=== PATIENT | female | born 1965 | race Caucasian/White ===

== ENCOUNTER 2018-01-22 08:28 | Observation (INO) | payer OTHER ==
[~2018-01-22] VITALS: Ht 167.6 cm; Wt 107.2 kg
[2018-01-22 09:43] LABS: BASO % 1 % (0-3); EOS % 1 % (0-3); HEMATOCRIT 38.4 % (36.0-47.0); HEMOGLOBIN 13.1 g/dL (12.0-15.5); LYMPH % 45 % (24-48); MEAN CORPUSCULAR HEMOGLOBIN 31 pg (25-35); MEAN CORPUSCULAR HGB CONC 34 g/dL (31-37); MEAN CORPUSCULAR VOLUME 92 fL (79-100); MONO # 0.4 x10^3/uL (0.0-1.1); MONO % 6 % (0-9); NEUT # 3.2 x10^3uL (1.8-7.7); NEUT % 48 % (31-73); PLATELET COUNT 195 x10^3/uL (140-400); RED CELL DISTRIBUTION WIDTH 13.6 % (11.5-14.5); WHITE BLOOD COUNT 6.6 x10^3/uL (4.0-11.0)
[2018-01-22 10:09] VITALS: BP 133/76
[2018-01-22 10:34] LABS: ALBUMIN 3.9 g/dL (3.4-5.0); CALCIUM 9.7 mg/dL (8.5-10.1); CREATININE 0.7 mg/dL (0.6-1.0); GFR 87.2; POTASSIUM 4.1 mmol/L (3.5-5.1); TOTAL BILIRUBIN 0.3 mg/dL (0.2-1.0); TOTAL PROTEIN 7.7 g/dL (6.4-8.2)
[2018-01-22] MEDS ORDERED: LISI-334 PO (10:47)
[2018-01-22] MEDS ORDERED: ERGO500027 PO (10:47)
[2018-01-22] MEDS ORDERED: PRED1DRO OD (10:47)
[2018-01-22] MEDS ORDERED: VALA500T PO (10:47)
[2018-01-22] MEDS ORDERED: MONT10TA6 PO (10:47)
[2018-01-22] MEDS ORDERED: MELO15TA23 PO (10:47)
[2018-01-22] MEDS ORDERED: FISH12002 PO (10:47)
[2018-01-22] MEDS ORDERED: CETI10TA22 PO (10:47)
[2018-01-22] MEDS ORDERED: UBID100C26 PO (10:47)
[2018-01-22] MEDS ORDERED: ASPI-630 PO (10:47)
[2018-01-22] MEDS ORDERED: CRESTOR10 MG PO (10:47)
[2018-01-22 10:50] LABS: BILIRUBIN,URINE NEG (NEG); CLARITY,URINE CLEAR; COLOR,URINE YELLOW; GLUCOSE,URINE NEG (NEG); NITRITE,URINE NEG (NEG); RBC,URINE RARE /HPF (0-2); UROBILINOGEN,URINE 0.2 mg/dL (0.2 mg/dL); WBC,URINE RARE /HPF (0-4)
[2018-01-22 10:51] LABS: BACTERIA,URINE FEW /HPF (0-FEW); SQUAMOUS EPITHELIAL CELL,UR FEW /LPF
[2018-01-22 11:11] VITALS: BP 126/73
--- NOTE | 2018-01-22 11:40 | EKG ---
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
--- NOTE | 2018-01-22 12:51 | RAD ---
Chest, 2 views, 01/22/2018: History: Shortness of breath, heart fluttering Comparison is made to a study from 10/11/2010. The heart size and pulmonary vascularity are normal. No pulmonary infiltrate is seen. There is no evidence of pleural fluid. A surgical plate and screws is evident in the lower cervical spine. IMPRESSION: No acute cardiopulmonary abnormality is detected.
--- NOTE | 2018-01-22 14:13 | PDOC2 ---
CONSULT Date of Admission DATE: 01/22/18 TIME: 14:13 Reason for Consult: Chest pain and palpitations Chief Complaint Chest pain Source: Patient History of Present Illness 52-year-old female presented complaining of intermittent episodes of retrosternal chest pressure associated with palpitations not related to exertion or food intake. She stated that she was worked up by cardiology 2-3 years ago for palpitations when everything came back normal. She denied any orthopnea/PND or syncope. Past Medical History Hypertension Hyperlipidemia Family History Negative for premature coronary artery disease Social History Patient is a nonsmoker and nondrinker Current Medications Current Medications Aspirin (Children'S Aspirin) 81 mg DAILY PO ; Start 01/23/18 at 09:00 Cetirizine HCl (ZyrTEC) 10 mg DAILY PO ; Start 01/23/18 at 09:00 Lisinopril (Prinivil) 20 mg DAILY PO ; Start 01/23/18 at 09:00 Meloxicam (Mobic) 15 mg DAILY PO ; Start 01/23/18 at 09:00 Montelukast Sodium (Singulair) 10 mg DAILY PO ; Start 01/23/18 at 09:00 Prednisolone Acetate (Pred Forte) 1 drop DAILY OD ; Start 01/23/18 at 09:00 Valacyclovir HCl (Valtrex) 500 mg DAILY PO ; Start 01/23/18 at 09:00 Vitamin D (Vitamin D3) 50,000 unit WEEKLY PO ; Start 01/29/18 at 09:00 Fish Oil (Fish Oil) 1,000 mg DAILY PO ; Start 01/23/18 at 09:00 Atorvastatin Calcium (Lipitor) 40 mg DAILY PO ; Start 01/23/18 at 09:00 Coenzyme Q10 (Coenzyme Q10) 100 mg DAILY PO ; Start 01/23/18 at 09:00 Active Scripts Active Reported Vitamin D2 (Ergocalciferol (Vitamin D2)) 50,000 Unit Capsule 1 Cap PO WEEKLY Meloxicam 15 Mg Tablet 1 Tab PO DAILY Lisinopril 20 Mg Tablet 1 Tab PO DAILY Crestor (Rosuvastatin Calcium) 10 Mg Tablet 1 Tab PO DAILY Zyrtec (Cetirizine Hcl) 10 Mg Tablet 1 Tab PO DAILY Singulair Tablet (Montelukast Sodium) 10 Mg Tablet 1 Tab PO DAILY Coq-10 (Ubidecarenone) 100 Mg Capsule 100 Mg PO DAILY Martin 3-6-9 1,200 mg Softgel (Fish Oil/Borage/Flax/Om3,6,9#1) 1,200 Mg Capsule 1 ,200 Mg PO DAILY Aspirin 81 Mg Tab.chew 81 Mg PO DAILY Pred Forte (Prednisolone Acetate) 1 Ml Drops.susp 1 Drop OD DAILY Valacyclovir (Valacyclovir Hcl) 500 Mg Tablet 1 Tab PO DAILY Allergies: Coded Allergies: Iodinated Contrast- Oral and IV Dye (Verified Allergy, Severe, 01/22/18) PSYCHOLOGICAL ROS: No: Hallucinations Eyes: No: Loss of vision HEENT: No: Epistaxis ENDOCRINE: YES: Palpitations Respiratory: No: Hemoptysis Cardiovascular: yes: Chest Pain Gastrointestinal: No: Vomiting Genitourinary: No: [place] Neurological: No: Seizures Skin: No: Rash General: Alert, Oriented X3 HEENT: Atraumatic, PERRLA Lungs: Clear to auscultation Heart: Regular rate Abdomen: Soft Extremities: No edema Neuro: Normal tone Psych/Mental Status: Mood NL VITALS Vital Signs Date Time Temp Pulse Resp B/P (MAP) Pulse Ox O2 Delivery O2 Flow Rate FiO2 01/22/18 11:11 98.0 87 13 126/73 (90) 99 Room Air Labs Laboratory Tests Test 01/22/18 09:31 01/22/18 10:00 White Blood Count 6.6 x10^3/uL (4.0-11.0) Red Blood Count 4.20 x10^6/uL (3.50-5.40) Hemoglobin 13.1 g/dL (12.0-15.5) Hematocrit 38.4 % (36.0-47.0) Mean Corpuscular Volume 92 fL (79-100) Mean Corpuscular Hemoglobin 31 pg (25-35) Mean Corpuscular Hemoglobin Concent 34 g/dL (31-37) Red Cell Distribution Width 13.6 % (11.5-14.5) Platelet Count 195 x10^3/uL (140-400) Neutrophils (%) (Auto) 48 % (31-73) Lymphocytes (%) (Auto) 45 % (24-48) Monocytes (%) (Auto) 6 % (0-9) Eosinophils (%) (Auto) 1 % (0-3) Basophils (%) (Auto) 1 % (0-3) Neutrophils # (Auto) 3.2 x10^3uL (1.8-7.7) Lymphocytes # (Auto) 3.0 x10^3/uL (1.0-4.8) Monocytes # (Auto) 0.4 x10^3/uL (0.0-1.1) Eosinophils # (Auto) 0.0 x10^3/uL (0.0-0.7) Basophils # (Auto) 0.0 x10^3/uL (0.0-0.2) D-Dimer (Stephanie) 0.25 mg/L (0.00-0.50) Urine Collection Type Unknown Urine Color Yellow Urine Clarity Clear Urine pH 7.0 Urine Specific [place] 1.015 Urine Protein Neg (NEG-TRACE) Urine Glucose (UA) Neg mg/dL (NEG) Urine Ketones (Stick) Neg mg/dL (NEG) Urine Blood Neg (NEG) Urine Nitrite Neg (NEG) Urine Bilirubin Neg (NEG) Urine Urobilinogen Dipstick 0.2 mg/dL (0.2 mg/dL) Urine Leukocyte Esterase Neg (NEG) Urine RBC Rare /HPF (0-2) Urine WBC Rare /HPF (0-4) Urine Squamous Epithelial Cells Few /LPF Urine Bacteria Few /HPF (0-FEW) Sodium Level 142 mmol/L (136-145) Potassium Level 4.1 mmol/L (3.5-5.1) Chloride Level 105 mmol/L (98-107) Carbon Dioxide Level 26 mmol/L (21-32) Anion Gap 11 (6-14) Blood Urea Nitrogen 21 mg/dL (7-20) Creatinine 0.7 mg/dL (0.6-1.0) Estimated GFR (Cockcroft-Gault) 87.2 BUN/Creatinine Ratio 30 (6-20) Glucose Level 95 mg/dL (70-99) Calcium Level 9.7 mg/dL (8.5-10.1) Total Bilirubin 0.3 mg/dL (0.2-1.0) Aspartate Amino Transf (AST/SGOT) 29 U/L (15-37) Alanine Aminotransferase (ALT/SGPT) 52 U/L (14-59) Alkaline Phosphatase 72 U/L (46-116) Creatine Kinase 122 U/L (26-192) Creatine Kinase MB (Mass) 0.6 ng/mL (0.0-3.6) Creatine Kinase MB Relative Index 0.5 % (0-4) Troponin I Quantitative < 0.017 ng/mL (0-0.055) YG-Oqq-H-Type Natriuretic Peptide 10 pg/mL (0-124) Total Protein 7.7 g/dL (6.4-8.2) Albumin 3.9 g/dL (3.4-5.0) Albumin/Globulin Ratio 1.0 (1.0-1.7) Assessment/Plan 1. Chest pain with atypical features: Myocardial infarction ruled out. 2-D echo showed normal LV function without any significant wall motion abnormalities. Plan for Lexiscan nuclear stress test as an outpatient. 2. Palpitations: Presently in sinus rhythm and telemetry did not show any significant arrhythmias. Plan for outpatient Holter monitor. 3. Hypertension: Well-controlled 4. Hyperlipidemia: Continue statin therapy Thank you for your consultation Problems: RY LUKE MD Jan 22, 2018 14:13
[2018-01-22 14:41] LABS: THYROID STIM HORMONE (TSH) 1.027 uIU/mL (0.358-3.740)
--- NOTE | 2018-01-22 15:36 | CARD ---
MR#: [id number] Date of Study: 01/22/2018 Ordering Physician: JUAN ALTAMIRANO, Referring Physician: JUAN ALTAMIRANO, Tech: Rubi Huang RONNA APPROVED REPORT EXAM: Two-dimensional and M-mode echocardiogram with Doppler and color Doppler. Other Information Quality : Good INDICATION Chest Pain 2D DIMENSIONS RVDd2.7 (2.9-3.5cm)Left Atrium(2D)3.8 (1.6-4.0cm) IVSd1.2 (0.7-1.1cm)Aortic Root(2D)3.0 (2.0-3.7cm) LVDd4.3 (3.9-5.9cm)LVOT Diameter1.9 (1.8-2.4cm) PWd1.1 (0.7-1.1cm)LVDs2.5 (2.5-4.0cm) FS (%) 30.0 %SV60.6 ml LVEF(%)60.0 (>50%) Aortic Valve AoV Peak Dennis.136.8cm/sAoV VTI24.6cm AO Peak GR.7.5mmHgLVOT Peak Dennis.128.9cm/s LVOT VTI 25.28cmAO Mean GR.5mmHg PATRICIA (VMAX)2.26sy9ODC (VTI)2.87cm2 Mitral Valve MV E Mixolbyn00.8cm/sMV DECEL GWBJ108zy MV A Gtqqefrk37.0cm/sE/A Ratio1.1 Tricuspid Valve TR P. Ykotkdti860er/sRAP LTXSELGV6fnCt TR Peak Gr.81jeEaPLTI64yfNq Pulmonary Vein S1 Rjxizqlg99.2cm/sD2 Ycqkzynl34.7cm/s LEFT VENTRICLE The left ventricle is normal size. There is mild concentric left ventricular hypertrophy. The left ve ntricular systolic function is normal and the ejection fraction is within normal range. The Ejection Fraction is 55-60%. There is normal LV segmental wall motion. Transmitral Doppler flow pattern is Gra de I-abnormal relaxation pattern. RIGHT VENTRICLE The right ventricle is normal size. The right ventricular systolic function is normal. ATRIA The left atrium size is normal. The right atrium size is normal. The interatrial septum is intact wit h no evidence for an atrial septal defect or patent foramen ovale as noted on 2-D or Doppler imaging. AORTIC VALVE The aortic valve is calcified but opens well. Doppler and Color Flow revealed no significant aortic r egurgitation. There is no significant aortic valvular stenosis. MITRAL VALVE The mitral valve is calcified but opens well. There is no evidence of mitral valve prolapse. There is no mitral valve stenosis. Doppler and Color-flow revealed trace mitral regurgitation. TRICUSPID VALVE The tricuspid valve is normal in structure and function. Doppler and Color Flow revealed trace tricus pid regurgitation. The PA pressure was estimated at 24 mmHg. There is no tricuspid valve stenosis. PULMONIC VALVE The pulmonic valve is not well visualized. Doppler and Color Flow revealed trace pulmonic valvular re gurgitation. There is no pulmonic valvular stenosis. GREAT VESSELS The aortic root is normal in size. The ascending aorta is mildly dilated at 3.4 cm. The IVC was not v isualized. PERICARDIAL EFFUSION There is no evidence of significant pericardial effusion. Critical Notification Critical Value: No <Conclusion> The left ventricular systolic function is normal and the ejection fraction is within normal range. Th e Ejection Fraction is 55-60%. There is normal LV segmental wall motion. The ascending aorta is mildly dilated at 3.4 cm. Signed by : Dagoberto Castrejon, Electronically Approved : 01/22/2018 15:35:47
[2018-01-23] MEDS ORDERED: OMEGA-3 FATTY ACIDS/FISH OIL 1,000 MG CAPSULE. PO SCH (09:00)
[2018-01-23] MEDS ORDERED: valACYclovir 500 MG TABLET. PO SCH (09:00)
[2018-01-23] MEDS ORDERED: prednisoLONE ACETATE 1% OPHTH SUSPENSION 5ML BOTTLE. OD SCH (09:00)
[2018-01-23] MEDS ORDERED: CETIRIZINE HCL 10 MG TABLET PO SCH (09:00)
[2018-01-23] MEDS ORDERED: LISINOPRIL 20 MG TABLET PO SCH (09:00)
[2018-01-23] MEDS ORDERED: MELOXICAM 15 MG TABLET. PO SCH (09:00)
[2018-01-23] MEDS ORDERED: MONTELUKAST 10 MG TABLET. PO SCH (09:00)
[2018-01-23] MEDS ORDERED: ASPIRIN 81 MG TAB.CHEW PO SCH (09:00)
[2018-01-23] MEDS ORDERED: UBIDECARENONE 50 MG CAPSULE. PO SCH (09:00)
[2018-01-23] MEDS ORDERED: ATORVASTATIN CALCIUM 20 MG TABLET PO SCH (09:00)
[2018-01-29] MEDS ORDERED: CHOLECALCIFEROL (VITAMIN D3) 50,000 UNIT CAPSULE PO SCH (09:00)
== END 2018-01-22 18:08 | disposition home or self-care (01) ==
LOC: ICU 08:28 → INTOOBSV 08:28
PROVIDERS: ADMIT Family Medicine; ATTEND Family Medicine
DX: R07.89 Other chest pain (principal); R00.2 Palpitations; R06.02 Shortness of breath; I10 Essential (primary) hypertension; E78.5 Hyperlipidemia, unspecified; Z82.49 Family history of ischemic heart disease and other diseases of the circulatory system; Z83.3 Family history of diabetes mellitus; Z82.5 Family history of asthma and other chronic lower respiratory diseases; Z84.89 Family history of other specified conditions
CPT/HCPCS: 36415; 71046; 80053; 80061; 81001; 82553; 83880; 84443; 84484; 85025; 85379; 87641; 93005; 93306; G0378; G0379

== ENCOUNTER → 2018-06-04 | Outpatient (CLI) | payer OTHER ==
[~2018-06-04] MED LIST: ASPI-630 PO; CETI10TA22 PO; CRESTOR10 MG PO; ERGO500027 PO; FISH12002 PO; LISI-334 PO; MELO15TA23 PO; MONT10TA6 PO; PRED1DRO OD; UBID100C26 PO; VALA500T PO
--- NOTE | 2018-06-06 15:59 | RAD ---
DATE: 06/04/2018 EXAM: MAMMO MIRELLA SCREENING BILATERAL HISTORY: Routine screening COMPARISON: 02/19/2014 This study was interpreted with the benefit of Computerized Aided Detection (CAD). The breast parenchyma shows scattered fibroglandular densities. Breast parenchyma level B. FINDINGS: 2-D and 3-D tomosynthesis imaging was performed in CC and MLO projections. No new or enlarging breast densities are seen. No suspicious microcalcifications are evident. IMPRESSION: Stable mammograms without evidence of malignancy. BI-RADS CATEGORY: 1 NEGATIVE RECOMMENDED FOLLOW-UP: 12M 12 MONTH FOLLOW-UP PQRS compliance statement: Patient information was entered into a reminder system with a target due date for the next mammogram. Mammography is a sensitive method for finding small breast cancers, but it does not detect them all and is not a substitute for careful clinical examination. A negative mammogram does not negate a clinically suspicious finding and should not result in delay in biopsying a clinically suspicious abnormality. "Our facility is accredited by the [employer] Mammography Program."
== END | disposition home or self-care (01) ==
LOC: MAMMO 08:29
PROVIDERS: ATTEND Nurse Practitioner Family
DX: Z12.31 Encounter for screening mammogram for malignant neoplasm of breast (principal); I10 Essential (primary) hypertension; E78.5 Hyperlipidemia, unspecified; Z82.49 Family history of ischemic heart disease and other diseases of the circulatory system; Z84.89 Family history of other specified conditions; Z83.3 Family history of diabetes mellitus; Z82.5 Family history of asthma and other chronic lower respiratory diseases
CPT/HCPCS: 77063; 77067

== ENCOUNTER 2018-11-28 18:30 | Emergency (ER) | payer OTHER ==
[~2018-11-28] VITALS: Ht 167.6 cm; Wt 107.0 kg
[~2018-11-28 18:30] MED LIST changes: -MONT10TA6 PO; +MONT10TA80 PO
[2018-11-28 18:42] VITALS: BP 167/106
[2018-11-28] MEDS ORDERED: IV NORMAL SALINE 1,000ML 1,000 ML IV ONE (19:00)
[2018-11-28] MEDS ORDERED: ONDANSETRON PF 4 MG/2 ML VIAL. IV ONE (19:15)
[2018-11-28] MEDS ORDERED: KETOROLAC 30 MG/ML VIAL. IV ONE (19:15)
[2018-11-28] MEDS ORDERED: MORPHINE SULFATE 4 MG/ML DISP.SYRIN. IV ONE (19:15)
[2018-11-28 19:33] LABS: BASO # 0.1 x10^3/uL (0.0-0.2); BASO % 1 % (0-3); EOS % 1 % (0-3); HEMOGLOBIN 13.2 g/dL (12.0-15.5); LYMPH # 3.2 x10^3/uL (1.0-4.8); LYMPH % 47 % (24-48); MEAN CORPUSCULAR HEMOGLOBIN 32 pg (25-35); MEAN CORPUSCULAR HGB CONC 35 g/dL (31-37); MEAN CORPUSCULAR VOLUME 91 fL (79-100); MONO # 0.4 x10^3/uL (0.0-1.1); MONO % 6 % (0-9); NEUT # 3.2 x10^3uL (1.8-7.7); NEUT % 46 % (31-73); PLATELET COUNT 256 x10^3/uL (140-400); RED BLOOD COUNT 4.15 x10^6/uL (3.50-5.40); RED CELL DISTRIBUTION WIDTH 13.4 % (11.5-14.5); WHITE BLOOD COUNT 6.9 x10^3/uL (4.0-11.0)
[2018-11-28 19:38] LABS: BILIRUBIN,URINE NEG (NEG); CLARITY,URINE CLOUDY; COLOR,URINE YELLOW; GLUCOSE,URINE NEG (NEG); UROBILINOGEN,URINE 0.2 mg/dL (0.2 mg/dL)
[2018-11-28 19:39] LABS: BACTERIA,URINE MOD /HPF (0-FEW); NITRITE,URINE NEG (NEG); RBC,URINE 0 /HPF (0-2); SQUAMOUS EPITHELIAL CELL,UR MANY /LPF
--- NOTE | 2018-11-28 19:45 | ED.ADGEN ---
Past History Past Medical History: No Pertinent History Past Surgical History: Cervical Fusion Alcohol Use: None Drug Use: None Adult General Chief Complaint Chief Complaint abd pain HPI HPI 53 years old female presented to the emergency department with flank pain on the right side radiating to the epigastric area and rule out right lower quadrant described as cramps with sharp pain no nausea no vomiting no urinary symptoms fever no chills no urgency no frequency Review of Systems Review of Systems Constitutional: Denies fever or chills [] Eyes: Denies change in visual acuity, redness, or eye pain [] HENT: Denies nasal congestion or sore throat [] Respiratory: Denies cough or shortness of breath [] Cardiovascular: No additional information not addressed in HPI [] GI: Denies abdominal pain, nausea, vomiting, bloody stools or diarrhea [] : Denies dysuria or hematuria [] Musculoskeletal: Denies back pain or joint pain [] Integument: Denies rash or skin lesions [] Neurologic: Denies headache, focal weakness or sensory changes [] Endocrine: Denies polyuria or polydipsia [] All other systems were reviewed and found to be within normal limits, except as documented in this note. Current Medications Current Medications Current Medications Medications (Trade) Dose Ordered Sig/Cesar Start Time Stop Time Status Last Admin Dose Admin Ketorolac Tromethamine (Toradol 30mg Vial) 30 mg 1X ONCE 11/28/18 19:15 11/28/18 19:16 DC Morphine Sulfate (Morphine 4mg Syringe) 4 mg 1X ONCE 11/28/18 19:15 11/28/18 19:16 DC Ondansetron HCl (Zofran) 4 mg 1X ONCE 11/28/18 19:15 11/28/18 19:16 DC Sodium Chloride 1,000 ml @ 1,000 mls/hr 1X ONCE 11/28/18 19:00 11/28/18 19:59 Allergies Allergies Allergies Coded Allergies Type Severity Reaction Last Updated Verified Iodinated Contrast- Oral and IV Dye Allergy Severe 01/22/18 Yes Physical Exam Physical Exam Constitutional: Well developed, well nourished, no acute distress, non-toxic appearance. [] HENT: Normocephalic, atraumatic, bilateral external ears normal, oropharynx moist, no oral exudates, nose normal. [] Eyes: PERRLA, EOMI, conjunctiva normal, no discharge. [] Neck: Normal range of motion, no tenderness, supple, no stridor. [] Cardiovascular:Heart rate regular rhythm, no murmur [] Lungs & Thorax: Bilateral breath sounds clear to auscultation [] Abdomen: Bowel sounds normal, soft, tenderness periumbilical, no masses, no pulsatile masses. [] Skin: Warm, dry, no erythema, no rash. [] Back: No tenderness, no CVA tenderness. [] Extremities: No tenderness, no cyanosis, no clubbing, ROM intact, no edema. [] Neurologic: Alert and oriented X 3, normal motor function, normal sensory function, no focal deficits noted. [] Psychologic: Affect normal, judgement normal, mood normal. [] Current Patient Data Vital Signs Vital Signs Date Time Temp Pulse Resp B/P (MAP) Pulse Ox O2 Delivery O2 Flow Rate FiO2 11/28/18 18:42 92 18 99 Room Air Lab Results Laboratory Tests Test 11/28/18 19:17 White Blood Count 6.9 x10^3/uL (4.0-11.0) Red Blood Count 4.15 x10^6/uL (3.50-5.40) Hemoglobin 13.2 g/dL (12.0-15.5) Hematocrit 38.0 % (36.0-47.0) Mean Corpuscular Volume 91 fL (79-100) Mean Corpuscular Hemoglobin 32 pg (25-35) Mean Corpuscular Hemoglobin Concent 35 g/dL (31-37) Red Cell Distribution Width 13.4 % (11.5-14.5) Platelet Count 256 x10^3/uL (140-400) Neutrophils (%) (Auto) 46 % (31-73) Lymphocytes (%) (Auto) 47 % (24-48) Monocytes (%) (Auto) 6 % (0-9) Eosinophils (%) (Auto) 1 % (0-3) Basophils (%) (Auto) 1 % (0-3) Neutrophils # (Auto) 3.2 x10^3uL (1.8-7.7) Lymphocytes # (Auto) 3.2 x10^3/uL (1.0-4.8) Monocytes # (Auto) 0.4 x10^3/uL (0.0-1.1) Eosinophils # (Auto) 0.0 x10^3/uL (0.0-0.7) Basophils # (Auto) 0.1 x10^3/uL (0.0-0.2) Urine Collection Type Unknown Urine Color Yellow Urine Clarity Cloudy Urine pH 6.5 Urine Specific [place] 1.020 Urine Protein Neg (NEG-TRACE) Urine Glucose (UA) Neg mg/dL (NEG) Urine Ketones (Stick) Neg mg/dL (NEG) Urine Blood Neg (NEG) Urine Nitrite Neg (NEG) Urine Bilirubin Neg (NEG) Urine Urobilinogen Dipstick 0.2 mg/dL (0.2 mg/dL) Urine Leukocyte Esterase Small (NEG) Urine RBC 0 /HPF (0-2) Urine WBC 5-10 /HPF (0-4) Urine Squamous Epithelial Cells Many /LPF Urine Bacteria Mod /HPF (0-FEW) EKG EKG [] Radiology/Procedures Radiology/Procedures [] Course & Med Decision Making Course & Med Decision Making Pertinent Labs and Imaging studies reviewed. (See chart for details) [] Final Impression Final Impression [] Dragon Disclaimer Dragon Disclaimer This electronic medical record was generated, in whole or in part, using a voice recognition dictation system. CRISTEL MORRIS MD Nov 28, 2018 19:45
--- NOTE | 2018-11-28 20:01 | RAD ---
CT study of the abdomen and pelvis without contrast INDICATIONS: Left flank pain radiating to back since Sunday. History of hysterectomy. TECHNIQUE: Noncontrast helical CT scanning of the abdomen and pelvis was performed. Without contrast, the sensitivity to detect organ pathology and GI tract pathology is decreased. PQRS compliance Statement One or more of the following individualized dose reduction techniques were utilized for this study: 1. Automated exposure control 2. Adjustment of the mA and/or kV according to patient size 3. Use of iterative reconstruction technique COMPARISON: None available. FINDINGS: The liver and spleen and pancreas are homogeneous in appearance on this noncontrast study. The gallbladder is normal and no extrahepatic biliary ductal dilatation is seen. No adrenal mass is evident. No hydronephrosis or hydroureter or urinary tract stone is evident. No renal mass is seen on either side on this noncontrast study and no perinephric inflammatory change or free fluid is seen. The urinary bladder wall is smooth. The uterus is surgically absent. No focal aneurysmal dilatation of the abdominal aorta is seen. No enlarged abdominal or pelvic lymphadenopathy is evident. Mild fecal retention is seen throughout the colon. The appendix is normal. No obstructive bowel pattern is evident. No free intraperitoneal air or free fluid or mesenteric edema is seen. No lytic process is evident. No lung base consolidation is evident. IMPRESSION: No acute abnormality of the abdomen or pelvis. Electronically signed by: Ty Masterson MD (11/28/2018 7:58 PM) [facility]
[2018-11-28 20:15] LABS: ALBUMIN 3.8 g/dL (3.4-5.0); CREATININE 0.8 mg/dL (0.6-1.0); GFR 74.5; POTASSIUM 3.9 mmol/L (3.5-5.1); TOTAL BILIRUBIN 0.3 mg/dL (0.2-1.0); TOTAL PROTEIN 7.7 g/dL (6.4-8.2)
[2018-11-28] MEDS ORDERED: DICY10CA3 PO (20:35)
[2018-11-28] MEDS ORDERED: SULF1TAB24 PO (20:40)
[2018-11-28] MEDS ORDERED: DICYCLOMINE 20 MG/2 ML AMPUL. IM ONE (20:45)
[2018-11-28] MEDS ORDERED: NITR100C62 PO (21:17)
== END 2018-11-28 21:25 | disposition home or self-care (01) ==
LOC: ER 18:30
DX: R10.33 Periumbilical pain (principal); Z91.041 Radiographic dye allergy status
CPT/HCPCS: 36415; 74176; 80053; 81001; 83690; 85025; 87086; 96361; 96372; 96374; 96375; 99284; J0500; J1885; J2270; J2405; J7030